=== PATIENT | male | born 2000 | race Caucasian/White ===

== ENCOUNTER 2024-04-08 23:17 | Emergency (ER) | payer MEDICAID ==
[~2024-04-08] VITALS: Ht 180.3 cm; Wt 86.2 kg
[2024-04-08 23:31] VITALS: BP_SYST 125; PULSE 77; RESP 18; TEMP 97.3; O2SAT 99
[2024-04-08] MEDS ORDERED: PRED50TA PO (23:57)
[2024-04-08] MEDS ORDERED: PENI500T PO (23:57)
[2024-04-09 00:02] VITALS: BP_SYST 125; PULSE 77; RESP 18; TEMP 97.3; O2SAT 99
== END 2024-04-09 00:02 | disposition home or self-care (01) ==
LOC: SED 23:17
DX: K12.2 Cellulitis and abscess of mouth (principal); Z79.899 Other long term (current) drug therapy; Z79.2 Long term (current) use of antibiotics
CPT/HCPCS: 99283